=== PATIENT | male | born 2000 | race African-American/Black ===

== ENCOUNTER 2023-04-24 13:58 | Emergency (ER) | payer OTHER ==
[~2023-04-24] VITALS: Ht 165.1 cm; Wt 44.5 kg
[2023-04-24 15:34] VITALS: BP 100/62; PULSE 62; RESP 16; TEMP 98; O2SAT 98
== END 2023-04-24 15:36 | disposition home or self-care (01) ==
LOC: ER 13:59
DX: S86.812A Strain of other muscle(s) and tendon(s) at lower leg level, left leg, initial encounter (principal); Z79.899 Other long term (current) drug therapy; X50.1XXA Overexertion from prolonged static or awkward postures, initial encounter; Y93.89 Activity, other specified; Y92.89 Other specified places as the place of occurrence of the external cause; Y99.8 Other external cause status
CPT/HCPCS: 73590; 99283; A6449

== ENCOUNTER 2023-06-21 13:24 | Emergency (ER) | payer OTHER ==
[~2023-06-21] VITALS: Ht 165.1 cm; Wt 97.3 kg
[2023-06-21 13:25] VITALS: BP 105/42; PULSE 69; RESP 16; TEMP 98.6; O2SAT 98
[2023-06-21] MEDS ORDERED: AMOX-117 PO (15:03)
== END 2023-06-21 15:12 | disposition home or self-care (01) ==
LOC: ER 13:24
DX: H66.92 Otitis media, unspecified, left ear (principal); R05.9 Cough, unspecified; R51.9 Headache, unspecified; Z79.2 Long term (current) use of antibiotics
CPT/HCPCS: 99283